=== PATIENT | female | born 2000 | race Hispanic/Latino ===

== ENCOUNTER 2020-09-27 04:38 | Inpatient (IN) | payer OTHER ==
[2020-09-27] MEDS ORDERED: BUTORPHANOL 1 MG/ML INJ IV PRN (04:39)
[2020-09-27] MEDS ORDERED: Ringers Lactate 1,000 ML IV PRN (04:39)
[2020-09-27] MEDS ORDERED: CARBOPROST TROME 250 MCG/ML IM PRN (04:39)
[2020-09-27] MEDS ORDERED: PROMETHAZINE INJ 25 MG/ML AMP IM PRN (04:39)
[2020-09-27] MEDS ORDERED: METHYLERGONOVINE 0.2MG/ML AMP IM PRN (04:39)
[2020-09-27] MEDS ORDERED: OXYTOCIN/LR 20 UNIT/1,000 ML BAG IV SCH ×2 (05:00→16:00)
[2020-09-27] MEDS ORDERED: Ringers Lactate 1,000 ML IV SCH (05:00)
[2020-09-27] MEDS ORDERED: OXYTOCIN/LR 20 UNIT/1,000 ML BAG IV ONE (05:07)
[2020-09-27 05:18] LABS: Urine Appearance CLOUDY; Urine Bilirubin NEGATIVE (NEG); Urine Blood 3+ (NEG); Urine Color YELLOW; Urine Glucose NEGATIVE (NEG); Urine Protein 1+ (NEG); Urine Specific Gravity 1.015 (1.005-1.030)
[2020-09-27 05:21] LABS: Absolute Lymphocytes (CBC) 3.1 K/uL (0.7-4.9); Basophils % 0.4 % (0-1.3); Hematocrit 35.2 % (36.0-45.0); Lymphocytes % 33.9 % (15.3-44.8); MPV 9.6 fL (7.6-11.3)
[2020-09-27 05:37] LABS: Urine Microscopic Reflex ORDER UMIC
[2020-09-27 05:41] LABS: Urine Bacteria >50 /HPF (<20); Urine Urothelial Cells <5 /HPF (NONE SEEN)
[2020-09-27 05:55] VITALS: BMI 38.1
[2020-09-27] MEDS ORDERED: LABETALOL HCL 100 MG/20 ML IV PRN (06:31)
[2020-09-27] MEDS ORDERED: MAGNESIUM SULF/STERILE WATER 1,000 ML IV ONE (06:52)
[2020-09-27] MEDS ORDERED: MAGNESIUM SULF/STERILE WATER 1,000 ML IV SCH (07:00)
[2020-09-27] MEDS ORDERED: INFLUENZA VACCINE (for 3y+) 0.5 ML DOSE IMVAC ONE (08:00)
--- NOTE | 2020-09-27 09:24 | PREOPHP ---
Date of Admission: 09/27/2020 History Of Present Illness: Xochitl Ramirez is a 19-year-old, primigravida, 39 weeks 1 day, followed antepartum without complications, scheduled for induction this morning. Family History: Grandparents with hypertension. Otherwise negative. Past Surgical History: No previous surgeries. Past Medical History: No STDs reported in the past. Allergies: NO ALLERGIES. Medications: vitamins prior to admission. Social History: Does not smoke. Physical Examination: HEENT: Clear. Pupils equal, round, and reactive to light and accommodation. Conjunctivae well perf used. No oral, lingual, or buccal lesions. Chest and Lungs: Have been clear. Breasts: Not examined. Abdomen: Term size. Baby is vertex. Extremities: Show +1 edema. Normal reflexes on admission. Vital Signs: Blood pressure was 143/103. Laboratory Data: +1 protein in the urine. Platelet levels were normal. Assessment And Plan: She has been started on 4 g magnesium sulfate initial dose and 2 g/hour mainten ance dose, labetalol has been ordered, if systolic hits or exceeds 165 or diastolic hits her exceeds 105. Right now, the blood pressure is completely normal 129/70 after the loading dose of magnesium s ulfate. Baby looks good. She is 2 cm, rupture of membranes performed, clear fluid. The cervix is s till somewhat posterior, 50% effaced, -1 station. Anticipate more rapid progress once we get into th e active phase of labor. Full discussion with the patient and her significant other. Anticipate del denise sometime later today. COVID negative. Strep negative. Rh positive, rubella immune. KAIC/MODL Voice ID: [id number]
--- NOTE | 2020-09-27 11:55 | PN ---
Xochitl Ramirez venancio regularly. She is now 4.5 to 5 cm, 80% effaced, vertex, still -1 station. Difficult to tell the position. Cervix is still somewhat posterior. She has had 1 mg of Stadol an d 25 mg of Phenergan. We will give her another 1 mg of Stadol by itself. Baby still has good variab ility. Vital signs are still within a reasonable range. Anticipate more rapid progress soon. VANI/JB Voice ID: [id number] Report ID: [id number]
[2020-09-27] MEDS ORDERED: LIDOCAINE 1% MPF 30 ML VIAL ONE (12:35)
--- NOTE | 2020-09-27 13:26 | PN ---
The patient is now 7.5 to 8 cm, 80% effaced, vertex, at almost 0 station. I think the baby is occipu t posterior. The patient is having lower back pain. She will start pelvic rocking. She is doing qu ite well with her breathing techniques. I think if the baby rotates, we will have a baby in fairly s hort order. If not, it might take a little bit longer. VANI/JB Voice ID: [id number] Report ID: [id number]
[2020-09-27] MEDS ORDERED: BISACODYL 10 MG RECTAL SUPP PR PRN (15:11)
[2020-09-27] MEDS ORDERED: Oxycodone HCl/Acetaminophen 1 TAB TAB PO PRN ×2 (15:11)
[2020-09-27] MEDS ORDERED: ACETAMINOPHEN 500 MG TAB PO PRN (15:11)
[2020-09-27] MEDS ORDERED: DIPHENHYDRAMINE 25 MG TAB/CAP PO PRN (15:11)
[2020-09-27] MEDS ORDERED: DOCUSATE NA/SENNA CONC 1 TAB PO PRN (15:11)
[2020-09-27] MEDS ORDERED: Ringers Lactate 1,000 ML IV ONE (15:49)
--- NOTE | 2020-09-27 16:26 | OP ---
Surgeon: Harry Resendez MD Indications And Procedure In Detail: Xochitl Ramirez is a 19-year-old, primigravida, 39 weeks and 1 d ay, came in for induction. Noted to have preeclampsia, started on magnesium sulfate. Rh positive, i mmune to rubella. Negative COVID. Negative strep. During the labor, received Stadol 1 mg IV x2, Ph energan 25 mg IM x1. Second stage of about 30-35 minutes. Spontaneous vaginal delivery of a 6-pound and 4-ounce male infant, Apgars 9 and 9. Small first-degree laceration, first degree episiotomy beg an. Second-degree laceration repaired with 2-0 chromic under local infiltration. Schultze delivery. The placenta was inspected and noted to be intact and normal. 350 cc or less blood loss. Uterus c ontracted down well with IV drip Pitocin. The patient will be placed back on magnesium sulfate and c ontinued until she begins to diurese. Blood pressures at this point have though have moderated to 13 2/76 at the time of delivery even with discomfort involved. Tolerated all procedures well. Final Diagnoses: Term intrauterine at 39 weeks and 1 day, vaginal delivery, preeclampsia, now delivered. VANI/JB Voice ID: [id number] Report ID: [id number]
[2020-09-27] MEDS: IBUPROFEN 200 MG TAB PO PRN (17:45)
[2020-09-27] MEDS ORDERED: PHENOBARBITAL 32.4 MG TABLET PO SCH (18:15)
[2020-09-27] MEDS ORDERED: PHENOBARBITAL 32.4 MG TABLET PO ONE (18:28)
[2020-09-27 23:49] LABS: RPR (Rapid Plasma Reagin) NON-REACT (NON-REACT)
[2020-09-28] MEDS: PHENOBARBITAL 32.4 MG TABLET PO SCH ×2 (02:15→11:00)
[2020-09-28] MEDS ORDERED: INFLUENZA VACCINE (for 3y+) 0.5 ML DOSE IMVAC ONE (08:40)
[2020-09-28] MEDS ORDERED: Tdap (Diph,Pertuss(Acell),Tet Vac) 0.5 ML SYR IMVAC ONE (08:41)
--- NOTE | 2020-09-28 09:33 | DS ---
Hospital Course: Xochitl Ramirez is a 19-year-old primigravida, 39 weeks 1 day, delivered a 6 pounds 4 ounces male , Apgars 9 and 9. Small first degree episiotomy followed by second-degree extens ion, repair with 2-0 chromic under local infiltration. Schultze delivery of the placenta, which insp ected and noted to be intact and normal. 350 cc or less blood loss. The patient was preeclamptic du ring the labor. She was given magnesium sulfate. Post her blood pressures have moderated, la st blood pressure was under 140 systolic. She would be dismissed with phenobarbital to be taken 3 ti mes a day for 3 additional days. She is to see me in my office Saturday of next week for followup with blood pressure monitoring. She is to report any fever of 100 degrees or more, severe pain, heavy bl eeding or any other type of abnormalities. Requests no analgesics on dismissal. Tdap and flu shots again suggested. Final Diagnoses: Intrauterine gestation 39 weeks 1 day, vaginal delivery, preeclampsia now resolving . Tdap and flu shots offered. COVID negative. Strep negative. Rubella immune. Rh positive. VANI/JB Voice ID: [id number] Report ID: [id number]
[2020-09-28] MEDS: IBUPROFEN 200 MG TAB PO PRN (11:55)
[2020-09-28 15:24] VITALS: TEMP 97.3
[2020-09-28 16:09] VITALS: BP 127/81
[2020-09-29 18:19] LABS: HBsAG Nonreactive (Nonreactive)
== END 2020-09-28 17:10 | disposition home or self-care (01) | DRG 807 ==
LOC: 2ND-WC 04:38
PROVIDERS: ADMIT Specialist; ATTEND Specialist
PROC: 10E0XZZ Delivery of Products of Conception, External Approach (ICD-10-PCS; principal; 2020-09-27)
PROC: 0KQM0ZZ Repair Perineum Muscle, Open Approach (ICD-10-PCS; 2020-09-27)
PROC: 0W8NXZZ Division of Female Perineum, External Approach (ICD-10-PCS; 2020-09-27)
PROC: 10907ZC Drainage of Amniotic Fluid, Therapeutic from Products of Conception, Via Natural or Artificial Opening (ICD-10-PCS; 2020-09-27)
PROC: 3E033VJ Introduction of Other Hormone into Peripheral Vein, Percutaneous Approach (ICD-10-PCS; 2020-09-27)
DX: O15.1 Eclampsia complicating labor (principal); Z37.0 Single live birth; O70.1 Second degree perineal laceration during delivery; Z3A.39 39 weeks gestation of pregnancy; Z23 Encounter for immunization; Z20.822 Contact with and (suspected) exposure to COVID-19
CPT/HCPCS: 36415; 81003; 81015; 83735; 85025; 86592; 86850; 86900; 86901; 87086; 87088; 87340; 90471; 90715; J0595; J2210; J2550; J2590; J3475; J7120; Q2035; U0003